=== PATIENT | male | born 1945 | race Caucasian/White ===

== ENCOUNTER → 2018-12-27 | Outpatient (CLI) | payer MEDICARE, BC, OTHER ==
[~2018-12-27] MED LIST: ALAVERT10 MG; AMOXICILLIN500 M1 PO; CENTRUM SILVER1 EAC4 PO; HALOPERIDOL; HALOPERIDOL 2 MG2 MG PO; KEFLEX500 MG PO; MEDROLDOSEPACK PO; PREDNISONE50 MG PO; PROAIR HFA8.5 GM INH; PROBIOTIC1 EAC3 PO; PROMETHAZINE D480 ML PO; PROSTAVAN PO; TESSALON PERLE100 MG PO; ZYRTEC10 M5 PO
== END ==
LOC: M.CT 17:00
DX: K80.80 Other cholelithiasis without obstruction (principal); K57.30 Diverticulosis of large intestine without perforation or abscess without bleeding; J90 Pleural effusion, not elsewhere classified; I70.0 Atherosclerosis of aorta; N40.0 Benign prostatic hyperplasia without lower urinary tract symptoms; R82.90 Unspecified abnormal findings in urine

== ENCOUNTER → 2018-12-28 | Outpatient (CLI) | payer MEDICARE, BC, OTHER ==
[2018-12-28 12:37] LABS: URINE BILIRUBIN NEGATIVE (Negative); URINE BLOOD NEGATIVE (Negative); URINE CLARITY CLEAR; URINE COLOR YELLOW; URINE GLUCOSE-RANDOM NEGATIVE (Negative); URINE KETONES NEGATIVE (Negative); URINE PROTEIN NEGATIVE (Negative); URINE UROBILINOGEN 0.2 E.U./dl (0.2-1.0)
[2018-12-28 12:38] LABS: URINE LEUKOCYTES-REFLEX 2+ (Negative); URINE NITRITE-REFLEX POSITIVE (Negative)
[2018-12-28 12:39] LABS: ABSOLUTE BASOPHILS 0.1 thou/uL (0.0-0.2); ABSOLUTE EOSINOPHILS 0.2 thou/uL (0.0-0.7); ABSOLUTE LYMPHOCYTES 0.8 thou/uL (0.8-5.3); ABSOLUTE MONOCYTES 0.9 thou/uL (0.0-1.2); ABSOLUTE NEUTROPHILS 9.1 thou/uL (1.6-8.1); BASOPHILS 0.6 %; EOSINOPHILS 2.1 %; HEMOGLOBIN 13.3 gm/dL (14.0-18.0); LYMPHOCYTES 6.8 %; MCHC 33.3 g/dL (28.0-37.0); MCV 93.3 fL (80.0-100.0); MONOCYTES 8.3 %; MPV 7.4 fl. (7.2-11.1); NUCLEATED RBCS 0 /100WBC; PLATELET COUNT* 294 thou/uL (150-400); POLYS 82.2 %; RBC 4.29 mil/uL (4.50-6.00); RDW-CV 12.7 % (10.5-14.5); WBC 11.1 thou/uL (4.0-11.0)
[2018-12-28 12:42] LABS: SQUAMOUS 0-3 Few /LPF (0-3)
[2018-12-28 12:43] LABS: CASTS None Seen /LPF (None Seen); CRYSTALS None Seen /LPF (None Seen); MUCUS 0-3 Light strn/LPF (None Seen); URINE RBC 0-2 Rare /HPF (0-2)
[2018-12-28 13:01] LABS: ALBUMIN 3.1 g/dL (3.4-5.0); CALCIUM 9.3 mg/dL (8.5-10.1); CREATININE 1.7 mg/dL (0.6-1.3); POTASSIUM 4.2 mmol/L (3.5-5.1); TOTAL PROTEIN 7.5 g/dL (6.4-8.2)
== END ==
LOC: M.ULTRA 11:30
PROVIDERS: Internal Medicine
DX: N28.1 Cyst of kidney, acquired (principal); N13.30 Unspecified hydronephrosis; R82.90 Unspecified abnormal findings in urine

== ENCOUNTER → 2018-12-30 | Outpatient (CLI) | payer MEDICARE, BC, OTHER | LOC: M.RAD 15:06 | DX: J98.4 Other disorders of lung (principal); R05 Cough; R13.10 Dysphagia, unspecified; R09.89 Other specified symptoms and signs involving the circulatory and respiratory systems ==